=== PATIENT | male | born 1985 | race Caucasian/White ===

== ENCOUNTER → 2018-11-24 | Outpatient (CLI) | payer OTHER ==
[~2018-11-24] MED LIST: BUPR1 PO; HYDACE5 PO; LORA10ER PO; NAPR500 PO; OMEP10ER PO; OXYACE5T PO; PANT40 PO; PRED20 PO; RXOXYACE PO; TRAM50
== END | disposition home or self-care (01) ==
LOC: LAB 11:09 → LAB SHORT 11:09
DX: F11.21 Opioid dependence, in remission (principal)
CPT/HCPCS: G0480

== ENCOUNTER 2021-10-12 17:53 | Emergency (ER) | payer OTHER ==
[~2021-10-12] VITALS: Ht 177.8 cm; Wt 63.5 kg
[2021-10-12] MEDS ORDERED: AMOCLA875 PO (18:20)
== END 2021-10-12 18:34 | disposition home or self-care (01) ==
LOC: ER 17:53
DX: K04.7 Periapical abscess without sinus (principal); Z91.048 Other nonmedicinal substance allergy status; Z87.891 Personal history of nicotine dependence
CPT/HCPCS: 99282; A9270

== ENCOUNTER → 2025-03-01 | Outpatient (CLI) | payer OTHER ==
[~2025-03-01] MED LIST changes: +AMOCLA875 PO
[2025-03-01 08:58] LABS: BASOPHILS ABSOLUTE AUTO 0.02 K/mm3 (0.00-0.23); BASOPHILS PERCENT AUTO 1 % (0-2); EOSINOPHILS ABSOLUTE AUTO 0.02 K/mm3 (0.00-0.68); EOSINOPHILS PERCENT AUTO 1 % (0-6); Hematocrit 42.3 % (37.0-53.0); Hemoglobin 14.6 g/dL (13.5-17.5); IMMATURE GRAN PERCENT AUTO 0 % (0-1); LYMPHOCYTES ABSOLUTE AUTO 1.03 K/mm3 (0.84-5.20); LYMPHOCYTES PERCENT AUTO 31 % (21-46); MONOCYTES ABSOLUTE AUTO 0.41 K/mm3 (0.16-1.47); MONOCYTES PERCENT AUTO 12 % (4-13); Mean Corpuscular HGB 31.3 pg (26.0-34.0); Mean Corpuscular HGB Conc 34.5 g/dL (31.5-36.5); Mean Corpuscular Volume 91 fL (80-100); NEUTROPHILS ABSOLUTE AUTO 1.82 K/mm3 (1.96-9.15); NEUTROPHILS PERCENT AUTO 55 % (41-73); Platelet Count 230 K/mm3 (150-400); RDW Coefficient Variation 12.7 % (11.7-14.2); RDW Standard Deviation 42.3 fL (35.1-46.3); Red Blood Cell Count 4.66 M/mm3 (4.30-5.90)
[2025-03-01 09:10] LABS: Albumin, Blood 4.7 g/dL (3.4-5.0); Albumin/Globulin Ratio 1.2 (0.8-1.8); Bilirubin, Total 0.5 mg/dL (0.1-1.0); Bun/Creatinine Ratio 12.9 (12.0-20.0); Calcium, Blood 9.5 mg/dL (8.5-10.1); Creatinine, Blood 0.93 mg/dL (0.60-1.20); Globulin, Blood 3.9 g/dL (2.2-4.0); Magnesium, Blood 2.1 mg/dL (1.6-2.4); Potassium, Blood 3.4 mmol/L (3.5-5.5); Total Protein, Blood 8.6 g/dL (6.4-8.2)
== END | disposition home or self-care (01) ==
LOC: LAB 08:54 → LAB SHORT 08:54
PROVIDERS: Physician Assistant
DX: R07.89 Other chest pain (principal)
CPT/HCPCS: 80053; 83735; 84484; 85025